=== PATIENT | male | born 1980 | race Caucasian/White ===

== ENCOUNTER 2019-04-13 15:28 | Emergency (ER) | payer OTHER ==
[~2019-04-13] VITALS: Ht 182.9 cm; Wt 80.8 kg
[~2019-04-13 15:28] MED LIST: CEPH-443 PO; CEPH250S33 PO; HYDR-4011 PO; SULF1TAB31 PO
[2019-04-13 15:34] VITALS: BP 141/83; PULSE 104; RESP 20; Ht 182.9 cm; Wt 80.8 kg
== END 2019-04-13 16:11 | disposition home or self-care (01) ==
LOC: E/R 15:28
DX: L02.416 Cutaneous abscess of left lower limb (principal)
CPT/HCPCS: 99283